=== PATIENT | female | born 1995 | race Caucasian/White ===

== ENCOUNTER 2019-02-18 18:25 | Inpatient (IN) | payer BC, MEDICAID, SELFPAY ==
[2019-02-18 18:58] VITALS: BMI 28.5
[2019-02-18 19:21] LABS: Absolute Lymphocyte Count 2.76 X10^3/uL (0.83-4.51); Absolute Neutrophil Count 13.6 X10^3/uL (2.0-7.7); Basophil# 0.04 X10^3/uL; Basophil% 0.2 % (0-1); Eosinophil# 0.04 X10^3/uL; Eosinophils% 0.2 % (0-5); Hematocrit 37.8 % (37-47); Hemoglobin 12.1 g/dL (12.0-15.0); Lymphocyte # 2.76 X10^3/ul (4.0); Lymphocyte % 15.6 % (19-41); Mean Corpuscular Hgb 26.4 pg (27.0-32.0); Mean Corpuscular Volume 82.4 fL (81-99); Monocyte# 1.13 X10^3/uL; Monocyte% 6.4 % (0-10); NRBC Flagged by Analyzer 0 % (0-5); Neutrophil # 13.61 X10^3/uL (2.7-7.7); Neutrophil % 77.1 % (47-70); Platelet Count 287 K/mm3 (150-450); RBC Distribution Width CV 12.5 % (11.6-14.6); RBC Distribution Width SD 37.2 fl (35.1-43.9); Red Blood Count 4.59 M/mm3 (4.2-5.4); White Blood Count 17.7 K/mm3 (4.4-11.0)
[2019-02-18] MEDS: Ondansetron 4 MG/2 ML Vial IV (20:15)
[2019-02-18] MEDS: 0.9% Saline Lock 10 ML Syringe IV ×2 (20:18→23:13)
[2019-02-18] MEDS: Lactated Ringers 1,000 ML 999 ML IV (20:24)
[2019-02-18] MEDS: Oxytocin 30 units/NS 500 ml 30 UNITS/500 ML IV.SOLN 334 UNITS IV (20:43)
--- NOTE | 2019-02-18 21:27 | HP.PCM_ITS ---
History Date of Admission: 12/09/16 Final RAMIREZ: 03/04/19 Final RAMIREZ Source: US <20 weeks Gestational age: 38 Weeks and 0 Days History of this : This is a 24 year-old, at 38 weeks gestational age presents in active labor Allergies No Known Allergies Allergy (Verified 12/09/16 06:39) Home Medications: Home Medications Ferrous Sulfate [Iron] 1 tab PO DAILY 12/09/16 Vits [Prenatabs FA ] 1 tablet PO DAILY 12/09/16 Smoking Status: Never smoker Alcohol: None Number of Fetus(es): 1 History Past Pregnancies: Past Pregnancies Delivery Date Name GA/Weeks Outcome Route Weight Infant Gender Labor Length Anesthesia Delivery Location Provider FOB Expected Infant Delivery Method: Spontaneous Vaginal Review of Systems Cardiovascular: Denies: Chest Pain Gastrointestinal: Reports: Abdominal Pain Physical Exam General: Alert, Oriented x3 Abdomen: Soft, Gravid Neurological: Cranial nerves II-XII grossly intact CUTTER INSPECTOR: Normal external genitalia Estimated gestational size: Appropriate for gestational size Presentation: Cephalic Cervix Dilation (cm): 8 Station: -1 Effacement (%): 100 Assessment/Plan This is a 24 year-old, G 2p1, at 38 weeks gestational age in active labor Admit to L&D Monitor FHR/TOCO anticipate Pain mgmt if desired
--- NOTE | 2019-02-18 21:35 | PCM.OPRPT ---
Vaginal Delivery Maternal Presentation: Active Labor Amniotic Membrane Rupture Type: Artificial Amniotic Fluid Description: Clear Final RAMIREZ: 03/04/19 Final RAMIREZ Source: US <20 weeks Gestational age: 38 Weeks and 0 Days Date of Procedure: 02/18/19 Pre-Operative Diagnosis: term gestation, spontaneous labor Post-Operative Diagnosis: live male infant Surgery/ Procedure Performed: Spontaneous Vaginal Delivery Type of Anesthesia: None Description of Procedure: of live male born without complications. Said delivered with good maternal pushing efforts. Gentle downward traction with delivery of the anterior shoulder without difficulty. Infant was placed on the mother's chest delayed cord clamping performed. Presentation: Vertex Placental Delivery Description: Spontaneous Placenta Disposition: [facility] Cord Vessel Description: 3 Vessels Cord Entanglement: None Estimated Blood Loss: 200 A gender: Male (1 minute): 8 (5 minute): 9 Episiotomy Description: None Laceration: None Medications given after delivery: IV Pitocin Complications: None
[2019-02-19 00:34] VITALS: BP 117/56; PULSE 99; RESP 16; TEMP 36.5; O2SAT 96
[2019-02-19 04:00] VITALS: BP 94/52; PULSE 83; RESP 16; TEMP 37.1
[2019-02-19] MEDS: Ibuprofen 600 MG Tablet PO ×2 (07:57→20:56)
--- NOTE | 2019-02-19 07:59 | PCM.PN.OB ---
Subjective: pt seen at bedside, doing well. pt reports good pain control. lochia mild. breast feeding well. pt requesting dc home at 24hrs. Voiding w/o difficulty. - Physical Exam General: Alert, Oriented x3 Abdomen: Soft, Non Tender, Non-Distended, - - fundus firm Vital Signs Temp Pulse Resp BP Pulse Ox 98.7 F 83 16 94/52 L 96 02/19/19 04:00 02/19/19 04:00 02/19/19 04:00 02/19/19 04:00 02/19/19 00:34 Oxygen Delivery Method Room Air Weight: 74.389 kg Body Mass Index (BMI) 28.5 Intake and Output for Last 24 Hours 02/17/19 02/18/19 02/19/19 23:59 23:59 23:59 Intake Total 816.35 / 816.35 Output Total 800 / 800 Balance 816.35 / 816.35 -800 / -800 Laboratory Tests Past 24 Hrs 02/18/19 02/18/19 19:00 19:00 WBC 17.7 H RBC 4.59 Hgb 12.1 Hct 37.8 MCV 82.4 MCH 26.4 L MCHC 32.0 RDW Std Deviation 37.2 RDW Coeff of Silvia 12.5 Plt Count 287 MPV 10.0 Immature Gran % (Auto) 0.500 Neut % (Auto) 77.1 H Lymph % (Auto) 15.6 L [place] % (Auto) 6.4 Eos % (Auto) 0.2 Baso % (Auto) 0.2 Absolute Neuts (auto) 13.6 H Absolute Lymphs (auto) 2.76 Nucleated RBC % 0 Blood Type B NEGATIVE Antibody Screen POSITIVE H Antibody Identification ANTI-D Medical Necessity - Tobacco Use Smoking Status: Never smoker Assessment/Plan PPD#1 doing well routine care pain mgmt dc home at 24 hrs
[2019-02-19 08:00] VITALS: BP 111/62; PULSE 87; RESP 16; TEMP 36.6; O2SAT 96
--- NOTE | 2019-02-19 08:01 | DCINST_ITS ---
Discharge Diet: No Restrictions Discharge Activity: Return to Normal Activity, May not drive while taking narcotic pain medications., May Shower May resume sexual activity in: 4-6 weeks Additional Activity Instructions:: Nothing in the vagina for 4-6 weeks. You may return to work/school in 6 weeks. Call your doctor if your incision/area has: Continuous Slow Oozing, Sudden Increased Bleeding, Increased Pain/ Swelling, Increased Redness, Foul Smelling Discharge Additional Instructions: If you experience any of the following, contact your healthcare provider. * Bleeding that soaks a pad every hour for 2 hours * Fever 100.4 or higher * Unrelieved incision or abdominal pain * Swelling, redness, discharge or bleeding from your incision or episiotomy site * Your incision begins to separate * Problems urinating (including inability to urinate or burning while urinating). * Visual changes * Severe headache * Flu-like symptoms * Pain or redness in one of both of your breasts * Pain, warmth, tenderness or swelling in your legs, especially the calf area * Frequent nausea and vomiting * Symptoms of depression or anxiety If you experience any of the following, call 911 or go to the nearest Emergency Room. * Chest pain * Problems breathing * Seizure activity * Partial or complete paralysis of a body part, slurred speech, weakness or drooping of the face, or a sudden inability to walk or hold your balance Allergies/Adverse Reactions: Allergies No Known Allergies Allergy (Verified 12/09/16 06:39) Medications to take at Discharge Vits [Prenatabs FA ] 1 tablet PO DAILY 12/09/16 Ibuprofen [Motrin] 600 mg PO Q6H PRN PRN #30 tab 02/19/19 The following prescriptions were given: Ibuprofen [Motrin] 600 mg PO Q6H PRN PRN #30 tab PRN Reason: Pain Score 1-3/10 Transmission Status: Pending to [id number] When: Call to make an appointment with your doctor in 6 weeks. If you had elevated Blood Pressure or 4th degree laceration you will need to be seen in 2 weeks. Primary Care Physician: Care Physician,No Primary [Primary Care Provider] - Test Results: Test results from this visit will be discussed in further detail at your follow- up appointment, if applicable.
[2019-02-19 12:10] VITALS: BP 122/68; PULSE 98; RESP 16; TEMP 36.7; O2SAT 95
[2019-02-19 15:20] VITALS: BP 118/67; PULSE 93; RESP 16; TEMP 36.7; O2SAT 97
[2019-02-19 20:57] VITALS: BP 121/76; PULSE 92; RESP 16; TEMP 36.6
== END 2019-02-19 21:59 | disposition home or self-care (01) | DRG 560 ==
PROVIDERS: Admitting Provider Obstetrics & Gynecology; Referring Provider Obstetrics & Gynecology; Visit Provider Obstetrics & Gynecology
DX: O80 Encounter for full-term uncomplicated delivery (principal); Z3A.38 38 weeks gestation of pregnancy; Z37.0 Single live birth
CPT/HCPCS: 59025; 59050; 85025; 85461; 86850; 86870; 86900; 86901; 90384; 99218; J7120; A4216; G0378; J2405; J2790

== ENCOUNTER 2024-03-31 14:36 | Inpatient (IN) | payer BC, SELFPAY ==
[2024-03-31] VITALS (18 sets, daily range): BP systolic 94–118; BP diastolic 49–70; PULSE 81–104; RESP 9–20; TEMP 36.3–37.3; O2SAT 95–100
--- NOTE | 2024-03-31 11:23 | US_ITS ---
STUDY: SECOND AND THIRD TRIMESTER OBSTETRICAL ULTRASOUND - LIMITED REASON FOR EXAM: Female, 29 years old No care. R/O breech LMP: June 25, 2023. PRIOR ULTRASOUND: None. TECHNIQUE: Transabdominal TECHNICAL QUALITY: Adequate. FINDINGS: There is a single intrauterine fetus. The fetus is in a breech presentation. There is demonstrated cardiac activity with a heart rate of 147 bpm. There is a normal amniotic fluid volume. The largest amniotic fluid pocket measures 3.6 cm. The amniotic fluid index (JERMAINE) is 6.4 cm. The placenta is posterior in location and is not low lying. There are Grade 3 placental changes. BIOMETRY: BPD: 9.3 cm: 37 weeks, 5 days: 31% HC: 34.3 cm: 39 weeks, 4 days: 36% AC: 35.5 cm: 39 weeks, 3 days: 61% FL: 6.9 cm: 35 weeks, 2 days: 2% Age by LMP: 40 weeks, 0 days. RAMIREZ by LMP: March 31, 2024. age by current US: 38 weeks, 1 days. RAMIREZ by current US: April 13, 2024. Estimated weight: 3436 grams, +/- 515 grams, 35 percentile. Large hydrocele. US/OB Limited With Biometrics IMPRESSION: Live intrauterine gestation with a mean gestational age of 38 weeks and 1 day. Borderline amniotic fluid index. hydrocele. Electronically Signed: Kasi García MD at 14:01 EST ,
[2024-03-31] MEDS: Lactated Ringers 1,000 ML 999 ML IV (15:30)
[2024-03-31 15:52] LABS: Mucous, Urine 0 SEEN /hpf (<or=2+); Squamous Epithelial Cells - UA 0 SEEN /hpf (5-10)
[2024-03-31 15:57] LABS: Absolute Lymphocyte Count 2.81 X10^3/uL (0.83-4.51); Absolute Neutrophil Count 12.2 X10^3/uL (2.0-7.7); Basophil# 0.04 X10^3/uL; Basophil% 0.2 % (0-1); Eosinophil# 0.01 X10^3/uL; Eosinophils% 0.1 % (0-5); Hematocrit 35.3 % (37-47); Hemoglobin 11.5 g/dL (12.0-15.0); Lymphocyte # 2.81 X10^3/ul (0.83-4.51); Lymphocyte % 17.4 % (19-41); Mean Corp Hgb Conc 32.6 g/dL (32-36); Mean Corpuscular Hgb 25.6 pg (27.0-32.0); Mean Corpuscular Volume 78.4 fL (81-99); Mean Platelet Vol. 9.8 fl (6.2-12.0); Monocyte# 0.97 X10^3/uL; NRBC Flagged by Analyzer 0 % (0-5); Neutrophil # 12.24 X10^3/uL (2.7-7.7); Neutrophil % 75.7 % (47-70); Platelet Count 332 K/mm3 (150-450); RBC Distribution Width CV 13.3 % (11.6-14.6); RBC Distribution Width SD 37.7 fl (35.1-43.9); White Blood Count 16.2 K/mm3 (4.4-11.0)
[2024-03-31 16:00] LABS: Color, Urine Yellow (Yellow); Glucose, Dipstick Normal (Normal); Ketone-Dipstick Negative (Negative); Leukocyte Esterase-Dipstick 500 /ul (Negative); Nitrite-Dipstick Negative (Negative); Occult Blood-Urine 150 /ul (Negative); Protein-Dipstick Negative (Negative); Urine Bilirubin Dipstick Negative (Negative); Urine Clarity Clear (Clear); Urine Urobilinogen Normal (Normal)
[2024-03-31] MEDS: Acetaminophen 500 MG Tablet 1000 MG PO ×2 (16:13→22:44)
[2024-03-31 16:27] LABS: Amphetamine Urine VISTA NEGATIVE (<1000 ng/mL); Barbiturate Urine VISTA NEGATIVE (< 200 ng/mL); Benzodiazepine Urine VISTA NEGATIVE (< 200 ng/mL); Cocaine Urine VISTA NEGATIVE (< 300 ng/mL); Ecstacy Urine VISTA NEGATIVE (< 500 ng/mL); Methadone Urine VISTA NEGATIVE (< 300 ng/mL); PCP Urine VISTA NEGATIVE (< 25 ng/mL); THC Urine VISTA NEGATIVE (< 50 ng/mL); Vista UDS pH Range 6
[2024-03-31] MEDS: Lactated Ringers 1,000 ML 500 ML IV (16:36)
[2024-03-31 16:52] LABS: Bacteria 3+ /hpf (None Seen); White Blood Cells 10-25 SEEN /hpf (0-5)
[2024-03-31 16:53] LABS: Red Blood Cells-Urine 5-10 SEEN /hpf (0-5)
[2024-03-31 16:55] LABS: Syphilis Antibodies Non-reactive
[2024-03-31] MEDS: Sodium Citrate/Citric Acid 30 ML UDC PO (18:07)
[2024-03-31] MEDS: Cefazolin 2 GM in Syringe IV (18:12)
--- NOTE | 2024-03-31 18:12 | HP.PCM.OB_ITS ---
HPI - General General Date of Admission: 03/31/24 Date of Service: 03/31/24 Chief Complaint: breech presentation, spotting and contractions HPI Narrative NIR TEAGUE, is a 29 F who presents to [facility] with spotting after a cervical exam by her clay dry press helper last night. She has been anali. She was told by her lamination builder she might have a previa given the spotting, and she does not know presentation. Wanted patient evaluated so the patient presented to [facility]. No LOF. Good FM. Having mild but regular contractions. She reports PNC with her lamination builder and she was planning a home . She has had no labs or formal ultrasound. EDC based on LMP. She reports her LMP is exact. 2 prior vaginal deliveries in hospital and 1 vaginal delivery at home. Denies or deliveries complications. [facility] Medical History (Updated 03/31/24 @ 18:[address] Kianna Jensen, DO) History of pre-term labor Home Medications ?Medication ?Instructions ?Recorded ?Last Taken ?Type vits,calcium no.78-iron 1 tab PO DAILY Check with primary 12/09/16 02/17/19 20:30 History fumarate-folic acid 29 mg-1 mg doctor tablet (Prenatabs FA) ibuprofen 600 mg tablet 600 mg PO Q6H PRN PRN Pain Score 02/19/19 Unknown Rx 1-07/25 #30 tabs magnesium PO 03/31/24 03/30/24 History Allergy/AdvReac Type Severity Reaction Status Date / Time No Known Allergies Allergy Verified 03/31/24 11:25 Surgical History (Updated 03/31/24 @ 15:52 by Viviane Jauregui) History of surgery Social History Smoking Status: Never smoker History Elective abortions Hx Para 3 Spontaneous abortions Hx # Term Pregnancies Ectopic pregnancies Hx # Pregnancies Multiple births # of living children NST FHR Rate Baby A FHR Category:: Category I Vital Signs Vital Signs Vital Signs: 03/31/24 10:55 03/31/24 10:55 03/31/24 10:55 Temperature Temperature Source Tympanic Pulse Rate Respiratory Rate 15 Blood Pressure Blood Pressure Mean BP Systolic BP Diastolic Blood Pressure Source Blood Pressure Position Blood Pressure Location Pulse Ox 100 Oxygen Delivery Method 03/31/24 10:55 03/31/24 11:14 03/31/24 11:14 Temperature 99.0 F Temperature Source Pulse Rate 104 H Respiratory Rate Blood Pressure 111/70 Blood Pressure Mean BP Systolic 111 BP Diastolic 70 Blood Pressure Source Blood Pressure Position Blood Pressure Location Pulse Ox Oxygen Delivery Method 03/31/24 11:28 03/31/24 11:28 03/31/24 11:43 Temperature Temperature Source Pulse Rate 100 Respiratory Rate Blood Pressure 111/68 114/66 Blood Pressure Mean BP Systolic 111 114 BP Diastolic 68 66 Blood Pressure Source Blood Pressure Position Blood Pressure Location Pulse Ox Oxygen Delivery Method 03/31/24 11:43 03/31/24 15:58 03/31/24 15:58 Temperature Temperature Source Pulse Rate 94 101 H Respiratory Rate Blood Pressure 118/67 Blood Pressure Mean BP Systolic 118 BP Diastolic 67 Blood Pressure Source Blood Pressure Position Blood Pressure Location Pulse Ox Oxygen Delivery Method 03/31/24 15:59 03/31/24 16:10 03/31/24 16:10 Temperature 99.1 F Temperature Source Temporal Temporal Pulse Rate 97 Respiratory Rate 15 15 Blood Pressure 118/67 Blood Pressure Mean 84 BP Systolic BP Diastolic Blood Pressure Source Monitor Blood Pressure Position Sitting Blood Pressure Location Right Arm Pulse Ox 99 Oxygen Delivery Method Room Air 03/31/24 16:10 Temperature 99.1 F Temperature Source Pulse Rate Respiratory Rate Blood Pressure Blood Pressure Mean BP Systolic BP Diastolic Blood Pressure Source Blood Pressure Position Blood Pressure Location Pulse Ox Oxygen Delivery Method Weight Weight: 175 lb Body Mass Index (BMI) 30.0 Labs Labs Labs: Blood Type B NEGATIVE Antibody Screen NEGATIVE Hct 35.3 % (37-47) L Hgb 11.5 g/dL (12.0-15.0) L Obstetrics Ultrasound Syphilis Total Ab Non-reactive Rubella IgG Antibody Pending Hep Bs Antigen Pending Hepatitis C Antibody Pending HIV 1&2 Antibody Pending Group B Strep DNA Negative (Negative) Rhogam given: Yes Assessment & Plan (1) 40 weeks gestation of : PLAN: Formal ultrasound shows no previa and breech presentation. Baby is well engaged in pelvis and discussed with patient would not be able to perform successful ECV. She reports her clay dry press helper attempted an ECV at home last night. Discussed importance of routine care. Discussed given 40 weeks based on LMP, history of rapid labors, spotting, contractions, and breech presentation the recommendation is for a primary section. Discussed r/b/a primary section and consent obtained. Patient desires to proceed with a section. Ancef ordered. panel ordered given no care. (2) Breech presentation: (3) Spotting affecting : (4) No care in current : (5) Uterine contractions:
[2024-03-31 18:20] LABS: Hepatitis B Surface Antigen Non-Reactive (Nonreactive); Hepatitis C Antibody Non-Reactive (Nonreactive)
[2024-03-31 19:05] LABS: HIV - WCH Non-Reactive (Nonreactive); Rubella IgG Reactive (Nonreactive); Syphilis Antibodies Non-reactive
--- NOTE | 2024-03-31 19:38 | OP.PCM_ITS ---
Problems Associated Problem List Diagnoses (1) Uterine contractions: (2) No care in current : (3) Spotting affecting : (4) Breech presentation: (5) 40 weeks gestation of : (6) Delivery by section: Operative Report (Standard) Operative Information Surgery/Procedure Performed: PLTCS via pfannenstiel incision Surgeon: Kianna Jensen Date of Procedure: 03/31/24 Procedure Start Time: 18:38 Procedure Stop Time: 19:27 Pre-Operative Diagnosis: 40 week gestation, breech presentation, no care, spotting, uterine contractions Post-Operative Diagnosis: As above Select all DRAINS/GRAFTS/IMPLANTS that apply: None Type of Anesthesia: Spinal Special Medications: None Estimated Blood Loss: 500 mL Fluids Replaced: 1500 mL Specimen collected: No Description of surgery: Indications: Patient presented to L&D with no care. She was seeing a pool player at home and planning a home delivery. She was told by her program facilitator that she could not assess presentation and the patient presented to L&D for further assessment. The patient was breech presentation on ultrasound and cervix changed from closed to 1 cm. Procedure: The patient was taken to the operative room where a spinal anesthesia was found to be adequate. She prepped and draped in the dorsal supine position with a leftward tilt. A Pfannenstiel skin incision was made using the scalpel and carried down to the underlying layer of fascia. The fascia was incised in the midline. The fascial incision was extended laterally using Man scissors. The fascia was tented off the rectus muscles and dissected in both cephalad and caudad direction using sharp dissection. The rectus muscles were in the midline. The peritoneum was entered sharply with good visualization of the bladder. The peritoneal incision was extended with lateral traction. A bladder blade was inserted. A low transverse incision was made on the uterus with a scalpel. Membranes were ruptured upon entry for scant clear fluid. The uterine incision was extended with cephalad and caudad traction. The buttocks of the was elevated out of the pelvis and delivered through the hysterotomy, followed by the body and head of the infant without any force, traction, or delay and keeping the head flexed during delivery. The cord was clamped and cut after a slight delay, and a vigorous viable male was handed off to the waiting nursery staff. The placenta was removed with manual extraction and noted to be normal-appearing. The uterus was exteriorized. The uterus was cleared of all clot debris. The hysterotomy was closed with 1-0 Vicryl in a running locked fashion. Bilateral adnexa were normal-appearing. Uterus was placed back into the abdomen. Gutters were cleared of clot and debris. Arrista was placed over the hysterotomy and lower uterine segment. Hemostasis was noted. The peritoneum was unable to be reapproximated. The subfascial space was inspected and noted to be hemostatic. The fascia was closed with STRATAFIX in a running fashion. Subcutaneous space was irrigated and made hemostatic with the Bovie cautery. Subcutaneous space was reapproximated using 3-0 Vicryl. The skin was closed with 4-0 Monocryl in a subcuticular fashion. The dressing was placed. Instrument, sharp, sponge counts were correct and the patient was taken to the recovery room in stable condition. Salomon POLO was present and assisted with draping the patient, and delivery of the . Lali Juarez CNM was present and assisted with closure. Surgical Findings: Vigorous VMI. Clear fluid. Normal appearing uterus and bilateral adnexa. Normal appearing placenta. Congregational Care Pastor community relations assistant: Yes Coat Ironer Hand: Salomon POLO Tasks completed by health information assistant: Opening Additional assistant press operator offset?: Yes Additional Audit Reviewer #2: Lali Juarez Tasks completed by assistant press operator offset #2: Closing Complications Complications: No Admit VTE Documentation VTE Present on Admission: No VTE Mechan Device Prophylaxis: SCD's
[2024-03-31] MEDS: Oxytocin 15 Units/NS 250ml 15 UNITS/250 ML IV.SOLN 83 UNITS IV (19:48)
[2024-03-31] MEDS: Lactated Ringers 1,000 ML 100 ML IV (19:48)
[2024-03-31] MEDS: Ketorolac 30 MG/ML Syringe IV (20:36)
[2024-03-31 20:50] LABS: Bedside Glucose 83 mg/dL (74-106)
[2024-03-31] MEDS: Ondansetron 4 MG/2 ML Vial IV (23:38)
[2024-03-31] MEDS: 0.9% Saline Lock 10 ML Syringe IV (23:38)
[2024-04-01] MEDS: LACTATED RINGERS 500 ML 999 ML IV (00:10)
[2024-04-01] MEDS: Ketorolac 30 MG/ML Syringe IV ×3 (02:06→14:49)
[2024-04-01 02:07] VITALS: BP 109/68; PULSE 90; RESP 16; O2SAT 100
[2024-04-01 04:00] VITALS: BP 107/63; PULSE 97; RESP 17; O2SAT 100
[2024-04-01] MEDS: Acetaminophen 500 MG Tablet 1000 MG PO ×4 (04:05→22:35)
[2024-04-01] MEDS: 0.9% Saline Lock 10 ML Syringe IV ×3 (04:06→14:57)
[2024-04-01 04:32] LABS: Hematocrit 28.1 % (37-47); Hemoglobin 9.2 g/dL (12.0-15.0); Mean Corp Hgb Conc 32.7 g/dL (32-36); Mean Corpuscular Volume 79.4 fL (81-99); Mean Platelet Vol. 9.5 fl (6.2-12.0); Platelet Count 241 K/mm3 (150-450); RBC Distribution Width CV 13.2 % (11.6-14.6); RBC Distribution Width SD 37.9 fl (35.1-43.9); Red Blood Count 3.54 M/mm3 (4.2-5.4); White Blood Count 13.7 K/mm3 (4.4-11.0)
[2024-04-01 08:30] VITALS: BP 93/64; PULSE 77; RESP 15; TEMP 36.1; O2SAT 97
[2024-04-01] MEDS: Senna/Docusate Sodium 1 Tablet PO (10:02)
--- NOTE | 2024-04-01 11:49 | CASEMGMT ---
Social Work Assessment Labor and Delivery Unit Patient Address: [address] [place] [address] Phone number: [phone] Date of Referral: 04/01/24 Time of Referral:? 06 Referred By: Kianna Jensen Date of Intervention: 04/01/24?? Time of Intervention:? 1100 Reason for Referral:? resources Sw completed chart review and acknowledges social work consult due to family in need of resources. Sw presented to bedside and introduced self to mother of baby (MOB- Ry) and father of baby (FOB- Arden). Sw explained reason for sw involvement and completed psychosocial assessment. Also present at time of assessment were parents three older children. History obtained from: medical records, MOB and FOB. Household composition: Currently residing in the family home is LYNNE MARQUEZ, their three older children: Linda (7), Jamaal (5) and Darryl (2). baby to be added to residence when ready for discharge. Parents deny any issues or concerns with housing, stating that it is safe and secure. Patient's parent/guardian status:? ?Parents state that they have been together for 11 years after meeting each other at the gym. No concerns reported of domestic violence or intimate partner violence. [place] baby is fourth baby for parents together. Medical History: ?ALMA is 29 year old female who is 4, para 3- now 4 following labor and delivery of . ALMA received care with a supervisor type disk quality control. At scheduled appointment, patient's supervisor type disk quality control discovered that baby was breech and tried to a version at home. Machine Tank Operator then encouraged her to seek ultrasound with the hospital. ALMA presented to hospital two days after failed version due to bleeding and delivered baby via after confirmed breech baby. Baby was born on [birth year].24 at 40 weeks gestation. Baby boy, named Eddie Polk, was born weighing 8lb 13oz with apgars of 9 and 9 at one and five minutes of life, respectfully. ALMA states that breast feeding is going well and baby will be followed by supervisor type disk quality control when ready for discharge. Educational Status:? MOB obtained an associates degree and LYNNE graduated from high school. NO concerns with reading, learning or comprehension. Financial Status: LYNNE is employed outside of the home. He works for [employer] as a surplus property disposal agent. ALMA is a stay at home mom and does not work outside of the home. Infant Supplies:Parents report that they have everything they need for baby including: car seat, safe sleep space, clothes, diapers and wipes. Childcare/Caregiver(s):? MOB will be the primary caregiver to baby along with LYNNE when he is not working. Transportation:?Both parents have their drivers license and reliable means of transportation, no barriers. Programs/Agencies Involved: Parents are not connected to any community resources that assist them financially at this time. Sw provided list of country resources for parents to review. Sw stated that depending on FOB's income, now that they have a fourth dependent there may be resources that they are eligible for. ??? Children Services/Legal Issues:??? No history of children services involvement, no issues or concerns warranting referral to be made at this time. Behavioral Health Issues: ??Mental Health History: Both parents deny mental health history. ??? Substance Use History:??No substance use reported prior to or during , parents deny use. Family History:?Parents deny family history of substance use/ addiction issues and significant mental health diagnoses. ? Drug Screens: No drug screens observed during chart review. Family/Social Stressors:? Parents deny any issues, concerns or stressors at this time. Support Systems: ALMA identifies LYNNE as her biggest support person along with her parents. Depression/Shaken Baby/Safe Sleeping: Sw educated parents on signs and symptoms of baby blues and mood and anxiety disorders to be mindful of during this period. ALMA states that she never struggled with any mental health concerns following the delivery of her other three children. MOB states that if she were to struggle LYNNE would be able to recognize that and so would her mom. Sw educated parents on shaken baby prevention and ABCs of safe sleep. Parents express understanding. ASSESSMENT:?MOB and baby admitted following labor and delivery of . MOB received care reportedly with supervisor type disk quality control throughout . MOB presented to hospital for unscheduled due to supervisor type disk quality control discovering patient was in breech position and failed attempt at a version at home. MOB and FOB both answered questions asked by sw during completion of assessment. FOB presented with polite response to sw meeting with family. MOB attentive to other children who were also present. Parents state that they have everything they need for baby and have natural supports in place. PLAN:?? No other services requested or indicated. MOB and baby to be discharged when medically ready. Parents were provided literature regarding: signs and symptoms of baby blues and mood and anxiety disorders, Help Me Grow, shaken baby prevention, ABCs of safe sleep and a list of county resources that are available for them should any needs present themselves. Nolberto Cheek, CINDER BLOCK MAKER, DUCT INSTALLER
[2024-04-01 13:05] VITALS: BP 97/64; PULSE 79; RESP 15; TEMP 36.8; O2SAT 97
[2024-04-01] MEDS: Rho(D) Immune Globulin 300 MCG (1500 Unit) Syringe IV (15:31)
[2024-04-01 16:34] VITALS: BP 98/73; PULSE 87; RESP 16; TEMP 36.6; O2SAT 98
[2024-04-01 20:29] VITALS: BP 106/72; PULSE 83; RESP 16; TEMP 36.7; O2SAT 99
[2024-04-01] MEDS: Ibuprofen 600 MG Tablet PO (21:29)
[2024-04-01] MEDS: oxyCODONE 5 MG Tablet PO (23:02)
--- NOTE | 2024-04-01 23:36 | PCM.PROGNOTE ---
Subjective Subjective patient seen at bedside, doing well. Patient reports good pain control. lochia mild. pain controlled, ambulating w/o difficulty. Objective Data Objective Data Vital Signs: Vital Signs Temp Pulse Resp BP Pulse Ox O2 Del Method 98.0 F 83 16 106/72 99 Room Air 04/01/24 20:29 04/01/24 20:29 04/01/24 20:29 04/01/24 20:29 04/01/24 20:29 04/01/24 20:29 Oxygen Delivery Method Room Air Weight: 79.379 kg Body Mass Index (BMI) 30.0 Intake & Output: Intake and Output for Last 24 Hours 03/30/24 03/31/24 04/01/24 23:59 23:59 23:59 Intake Total 2270 / 2270 1320 / 1320 Output Total 1300 / 1300 2800 / 2800 Balance 970 / 970 -1480 / -1480 Lab / Micro Data 04/01/24 04:10 Labs: Laboratory Results - last 24 hr 03/31/24 22:39: Screen NEGATIVE, Baby's Blood Type B POSITIVE, Baby's MU NEGATIVE 04/01/24 04:10: WBC 13.7 H, RBC 3.54 L, Hgb 9.2 L, Hct 28.1 L, MCV 79.4 L, MCH 26.0 L, MCHC 32.7, RDW Std Deviation 37.9, RDW Coeff of Silvia 13.2, Plt Count 241, MPV 9.5 Micro: Microbiology 03/31/24 15:30 Urine, Clean Catch Chlamydia/Neisseria (PCR) - Final Physical Exam Const alert and oriented x3 General Appearance: cooperative HEENT normocephalic Neck General: normal visual inspection GI soft to palpation and non-distended GI Narrative: Fundus firm Extremity normal to inspection and no calf tenderness Skin no rashes or lesions noted Neuro oriented x3 and CN's II-XII intact bilaterally Psych mental status grossly normal Assessment & Plan Assessment/Plan (1) Delivery by section: PLAN: Plan POD# 1 , Doing well Routine care pain mgmt monitor VS ambulation
[2024-04-02 02:00] VITALS: BP 97/62; PULSE 69; RESP 16; TEMP 36.6; O2SAT 98
[2024-04-02] MEDS: Ibuprofen 600 MG Tablet PO (03:32)
[2024-04-02] MEDS: Acetaminophen 500 MG Tablet 1000 MG PO (04:39)
--- NOTE | 2024-04-02 07:40 | PCM.PROGNOTE ---
Subjective Subjective patient seen at bedside, doing well. Patient reports good pain control. lochia mild. reports good pain control, lochia mild. Objective Data Objective Data Vital Signs: Vital Signs Temp Pulse Resp BP Pulse Ox O2 Del Method 97.8 F 69 16 97/62 98 Room Air 04/02/24 02:00 04/02/24 02:00 04/02/24 02:00 04/02/24 02:00 04/02/24 02:00 04/02/24 02:00 Oxygen Delivery Method Room Air Weight: 79.379 kg Body Mass Index (BMI) 30.0 Intake & Output: Intake and Output for Last 24 Hours 03/31/24 04/01/24 04/02/24 23:59 23:59 23:59 Intake Total 2270 / 2270 1320 / 1320 Output Total 1300 / 1300 2800 / 2800 Balance 970 / 970 -1480 / -1480 Lab / Micro Data 04/01/24 04:10 Micro: Microbiology 03/31/24 15:30 Urine, Clean Catch Chlamydia/Neisseria (PCR) - Final Physical Exam Narrative dressing dry and intact. fundus firm. Const alert and oriented x3 General Appearance: cooperative HEENT normocephalic Neck General: normal visual inspection GI soft to palpation and non-distended GI Narrative: Fundus firm Extremity normal to inspection and no calf tenderness Skin no rashes or lesions noted Neuro oriented x3 and CN's II-XII intact bilaterally Psych mental status grossly normal Assessment & Plan Assessment/Plan (1) Delivery by section: PLAN: Plan POD# 2 , Doing well Routine care pain mgmt monitor VS ambulation dc home time spent face to face with patient on day of discharge was <30min
--- NOTE | 2024-04-02 07:42 | DCINST_ITS ---
Discharge Instructions Diet Discharge Diet: No restrictions Activity May resume sexual activity in: 6-8 weeks Lifting Restrictions: 25 Dressing / Incision Call your doctor if your incision/area has: Continuous Slow Oozing, Sudden Increased Bleeding, Increased Pain/ Swelling, Increased Redness, Foul Smelling Discharge and Swelling at the incision site Call your doctor if you observe: Fever of 101 or Higher, Inability to urinate, Using more than 1 pad per hour and Uncontrolled pain Additional Dressing/Incision Instructions:: remove dressing at 7 days post op- if it becomes saturated prior to that time you may remove it. Let soap and water run over incision sites and dab dry. keep incision clean and dry. Follow Up Care Please Follow Up With: Bharati Solis MD When: 1-2 weeks post of incision check and again at 6 weeks post . [phone] Test Results: Test results from this visit will be discussed in further detail at your follow- up appointment, if applicable. Discharge Plan Admission Admit Date/Time: 03/31/24 14:36 Attending Provider: Kianna Jensen Primary Care Provider: Care Physician,Gissell Primary Discharge Orders/Prescriptions Prescriptions: New acetaminophen 500 mg Tablet 1,000 mg PO Q6H Qty: 0 0RF ibuprofen 600 mg Tablet 600 mg PO Q6H Qty: 0 0RF oxycodone 5 mg Tablet 5 - 10 mg PO Q4H PRN PRN (Reason: Pain Score 4-10) 3 Days Qty: 10 0RF simethicone 80 mg Tablet,Chewable 80 mg PO PCHS PRN (Reason: Indigestion/stomach pain) Qty: 0 0RF Continued vit,[id number] [Prenatabs FA] 1 TABLET tablet 1 tab PO DAILY magnesium PO Discontinued ibuprofen 600 MG tablet 600 mg PO Q6H PRN PRN (Reason: Pain Score 1-3/10) Qty: 30 0RF Referrals / Follow Up: Care Physician,No Primary [Primary Care Provider] - Disposition Disposition (needs filled in before D/C Order can be placed): Home, Self Care
[2024-04-02 07:46] VITALS: BP 99/67; PULSE 74; RESP 16; TEMP 36.8
--- NOTE | 2024-04-02 07:47 | PCM.DC.BLA ---
Discharge Summary Date of Admission: 03/31/24 Date of Discharge: 04/02/24 Summary: pt with no care, presented at approximately 40 weeks breech presentation. underwent Primary cs by Dr. Kianna Jensen without complication and was discharged home in stable condition on POD#2 Meaningful Use Info Meaningful Use Meaningful Use Diagnoses (Choose all that apply): None applicable Ischemic Stroke Statin Dosing Therapy Reference: STATIN DOSE THERAPY REFERENCE: * Patients > 75 years receive moderate or high dose statin therapy. * Patients 75 years or YOUNGER should receive HIGH intensity statin dose unless contraindicated. You will be required to document reason for non-treatment if statin daily dose does not meet guidelines. HIGH DOSE STATIN THERAPY DAILY Atorvastatin > than or = to 40 mg Rosuvastatin > than or = to 20 mg Amlodipine + Atorvastatin > than or = to 2.5/40 mg Ezetimibe + Simvastatin 10/80 mg Simvastatin 80mg Discharge Plan Admission Admit Date/Time: 03/31/24 14:36 Attending Provider: Kianna Jensen Primary Care Provider: Care Physician,No Primary Discharge Orders/Prescriptions Prescriptions: New acetaminophen 500 mg Tablet 1,000 mg PO Q6H Qty: 0 0RF ibuprofen 600 mg Tablet 600 mg PO Q6H Qty: 0 0RF oxycodone 5 mg Tablet 5 - 10 mg PO Q4H PRN PRN (Reason: Pain Score 4-10) 3 Days Qty: 10 0RF simethicone 80 mg Tablet,Chewable 80 mg PO PCHS PRN (Reason: Indigestion/stomach pain) Qty: 0 0RF Continued vit,[id number] [Prenatabs FA] 1 TABLET tablet 1 tab PO DAILY magnesium PO Discontinued ibuprofen 600 MG tablet 600 mg PO Q6H PRN PRN (Reason: Pain Score 1-3/10) Qty: 30 0RF Referrals / Follow Up: Care Physician,No Primary [Primary Care Provider] - Disposition Disposition (needs filled in before D/C Order can be placed): Home, Self Care
== END 2024-04-02 08:50 | disposition home or self-care (01) | DRG 788 ==
LOC: WPOUT 14:56 → WP 14:57
PROVIDERS: Admitting Provider Obstetrics & Gynecology; Referring Provider Obstetrics & Gynecology; Visit Provider Obstetrics & Gynecology
DX: O32.1XX0 Maternal care for breech presentation, not applicable or unspecified (principal); Z37.0 Single live birth; Z3A.40 40 weeks gestation of pregnancy
CPT/HCPCS: 59025; 59050; 76816; 80307; 81001; 82962; 85025; 85027; 85461; 86703; 86762; 86780; 86803; 86850; 86900; 86901; 87340; 87491; 87591; 90384; 99221; J7120; A4216; G0378; J2405; J2790; J2791